=== PATIENT | male | born 1955 | race Caucasian/White ===

== ENCOUNTER 2024-11-24 09:43 | Outpatient (OUT) | payer OTHER, SELFPAY ==
--- NOTE | 2024-11-24 09:53 | ECG_ITS ---
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 Measurements Intervals [place] Rate: 52 P: 68 [place]: 149 QRS: 62 QRSD: 95 T: 75 QT: 402 QTc: 374 Interpretive Statements SINUS BRADYCARDIA Otherwise normal ECG No previous ECG available for comparison Electronically Signed On 11-24-2024 12:16:09 EDT by GROVER KONG M.D.
== END 2024-11-24 09:44 | disposition home or self-care (01) ==
LOC: PST 09:44
PROVIDERS: PCP Nurse Practitioner Family; Visit Provider Surgery
DX: Z01.810 Encounter for preprocedural cardiovascular examination (principal); K40.90 Unilateral inguinal hernia, without obstruction or gangrene, not specified as recurrent
CPT/HCPCS: 93005

== ENCOUNTER 2024-12-06 08:29 | Day surgery (SDC) | payer OTHER, SELFPAY ==
[2024-11-24 10:40] VITALS: BP 153/72; PULSE 53; TEMP 36.2; O2SAT 98; BMI 22.7
[2024-12-06] VITALS (10 sets, daily range): BP systolic 128–174; BP diastolic 67–88; PULSE 52–74; TEMP 36.4; O2SAT 93–99; BMI 22.0
--- NOTE | 2024-12-06 | OP_ITS ---
OPERATION DATE: 12/06/2024 PREOPERATIVE DIAGNOSIS: Reducible right inguinal hernia. POSTOPERATIVE DIAGNOSIS: Indirect right inguinal hernia and cord lipoma. PROCEDURE: Right inguinal herniorrhaphy with Bard mesh patch insertion, polypropylene. SURGEON: Fransisco Sanchez M.D. ANESTHESIA: General endotracheal as well as right sided TAP block. ESTIMATED BLOOD LOSS: Less than 10 mL. INDICATIONS AND CONSENT: Patient is a 69-year-old male with history of a reducible inguinal hernia on the right, which is increasing in size and symptomatic. Indications, risks, benefits, alternatives of proceeding with herniorrhaphy with mesh insertion were explained extensively to the patient, including the risks of bleeding, infection, scarring, pain, recurrence, nerve injury, testicular injury, blood clot, pulmonary embolus, heart attack, anesthetic complications, need for further surgery or mesh removal. All of his questions were answered. Informed consent was obtained. PROCEDURE: Patient brought to the operating room, placed in the supine position. General anesthesia was induced. Right sided TAP block was performed. Patient was prepped and draped in the usual sterile fashion. A right groin incision was then made in the area of the skin crease and carried down through subcutaneous tissue using sharp dissection as well as electrocautery. Quincy?s fascia was divided. The external oblique which was attenuated was opened along the direction of its fibers, down through the external inguinal ring. Cord structures were mobilized and retracted with the Fabio drain. There was noted to be an indirect sac that was empty, as well as a cord lipoma. These were freed up, all the way up to the internal ring, from the vas deferens. It should be noted that a branch of the ilioinguinal nerve was scarred and involved with the hernia sac; therefore, it was divided and the ends were ligated with 3-0 Vicryl ties. High ligation of the hernia sac was performed using a 3-0 Vicryl suture. The cord lipomas were reduced back through the internal ring. The dilated internal ring was imbricated with some interrupted 2-0 Prolene sutures. The wound was irrigated with antibiotic sale. There was good hemostasis. The patch was then trimmed. The keyhole was created. It was placed in the floor of the inguinal canal. It was then secured circumferentially using interrupted 3-0 Vicryl sutures. Care was taken to avoid undo tension on the cord structures. Once this was completed, the wound was irrigated. There was good hemostasis. The external oblique was closed with a running 3-0 Vicryl suture. Quincy?s fascia was re-approximated with interrupted 3-0 Monocryl suture. The skin was then closed with a running 4-0 subcuticular Monocryl suture and skin glue. Sterile pressure dressing was applied. Sponge and needle counts were correct x2 per nursing personnel. Patient tolerated procedure well, was extubated and sent to recovery room in good condition. CC: Chelo Gavin, DERRELL COTTRELL
[2024-12-06] MEDS: LACTATED RINGER'S SOLUTION 1,000 ML 50 ML IV (09:11)
[2024-12-06] MEDS: CEFAZOLIN SODIUM 2 GM/50 ML D5W PREMIX IV (09:37)
[2024-12-06] MEDS: BUPIVACAINE LIPOSOME/PF 266 MG/20 ML VIAL INJ (10:32)
[2024-12-06] MEDS: CEFAZOLIN SODIUM 1,000 MG in 0.9 % SODIUM CHLORIDE 10 ML 10 MG IRR (10:50)
[2024-12-06] MEDS: BUPIVACAINE HCL 0.25% PF 25 MG/10 ML VIAL INJ (11:48)
[2024-12-06] MEDS: LACTATED RINGER'S SOLUTION 1,000 ML 125 ML IV (12:43)
--- NOTE | 2024-12-06 13:29 | PC.NURSE ---
Denies urge to void
--- NOTE | 2024-12-06 13:50 | PC.NURSE ---
Denies urge to void
--- NOTE | 2024-12-06 14:25 | PC.NURSE ---
Up to bathroom and voids clear yellow without difficulty
== END 2024-12-06 14:29 | disposition home or self-care (01) ==
PROVIDERS: PCP Nurse Practitioner Family; Visit Provider Surgery
PROC: (CPT 49505; principal; 2024-12-06 09:30)
DX: K40.90 Unilateral inguinal hernia, without obstruction or gangrene, not specified as recurrent (principal); D17.6 Benign lipomatous neoplasm of spermatic cord
CPT/HCPCS: 49505; 64488; 94667; C1781; J0665; J0690; J1100; J1885; J2250; J2405; J2704; J3010